=== PATIENT | female | born 1990 | race Caucasian/White ===

== ENCOUNTER 2022-09-23 19:38 | Inpatient (IN) | payer MEDICAID, SELFPAY ==
[2022-09-23 19:38] VITALS: BP 154/105; PULSE 120; RESP 20; TEMP 36.6; O2SAT 95
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
--- NOTE | 2022-09-23 20:55 | PC.NURSE ---
Patient stated she was feeling very anxious with a rating of 10/10. Also reported she would like medication to promote sleep. Vistaril and trazodone given as ordered at that time.
[2022-09-23] MEDS: hyDROXYzine 25 mg Capsule 50 MG PO (20:58)
[2022-09-23] MEDS: trazodone 50 mg Tablet PO (20:58)
[2022-09-23 21:42] VITALS: BP 154/105; PULSE 111; RESP 20; TEMP 36.6; O2SAT 96
--- NOTE | 2022-09-24 04:43 | PC.NURSE ---
Patient has rested comfortably since receiving earlier PRN's. No signs of distress noted.
[2022-09-24 06:00] VITALS: BP 126/80; PULSE 107; RESP 16; TEMP 36.7; O2SAT 95
[2022-09-24] MEDS: folic acid 1 mg Tablet PO (09:50)
[2022-09-24] MEDS: multivitamin therapeutic Tablet 1 TAB PO (09:50)
[2022-09-24] MEDS: thiamine 100 mg Tablet PO (09:50)
[2022-09-24] MEDS: fluoxetine 20 mg Capsule PO (09:51)
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
[2022-09-24 14:00] VITALS: BP 144/86; PULSE 100; RESP 17; TEMP 36.6; O2SAT 94
[2022-09-24] MEDS: hyDROXYzine 25 mg Capsule 50 MG PO (20:27)
[2022-09-24 21:11] VITALS: BP 133/82; PULSE 106; RESP 18; TEMP 36.7; O2SAT 94
[2022-09-25] MEDS: thiamine 100 mg Tablet PO (08:41)
[2022-09-25] MEDS: escitalopram 10 mg Tablet PO (08:41)
[2022-09-25] MEDS: multivitamin therapeutic Tablet 1 TAB PO (08:41)
[2022-09-25] MEDS: folic acid 1 mg Tablet PO (08:41)
[2022-09-25] MEDS: blistex lip oint 7 gm Tube 1 APPLIC TOPICAL (08:43)
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
[2022-09-25] MEDS: diphenhydrAMINE 50 mg Capsule PO (11:09)
[2022-09-25] MEDS: OLANZapine 5 mg ODT PO (13:37)
[2022-09-25 14:00] VITALS: BP 124/78; PULSE 115; RESP 17; TEMP 36.6; O2SAT 96
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
[2022-09-25] MEDS: hyDROXYzine 25 mg Capsule 50 MG PO (20:13)
[2022-09-25] MEDS: nicotine 2 mg Gum BUCCAL (20:13)
[2022-09-25] MEDS: trazodone 50 mg Tablet PO (20:13)
[2022-09-25 20:51] VITALS: BP 144/80; PULSE 108; RESP 17; O2SAT 95
[2022-09-26] MEDS: thiamine 100 mg Tablet PO (08:46)
[2022-09-26] MEDS: multivitamin therapeutic Tablet 1 TAB PO (08:46)
[2022-09-26] MEDS: folic acid 1 mg Tablet PO (08:46)
[2022-09-26] MEDS: nicotine 21 mg Patch 1 PATCH TRANSDERMA (08:46)
[2022-09-26] MEDS: escitalopram 10 mg Tablet 20 MG PO (08:46)
[2022-09-26] MEDS: hyDROXYzine 25 mg Capsule 50 MG PO ×3 (13:57→20:49)
[2022-09-26 14:00] VITALS: BP 147/85; PULSE 103; RESP 18; TEMP 36.7; O2SAT 94
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
[2022-09-26] MEDS: nicotine 2 mg Gum BUCCAL (20:49)
[2022-09-26 21:04] VITALS: BP 141/79; PULSE 109; RESP 18; O2SAT 96
[2022-09-26] MEDS: trazodone 50 mg Tablet PO (21:51)
[2022-09-27] MEDS: folic acid 1 mg Tablet PO (08:41)
[2022-09-27] MEDS: escitalopram 10 mg Tablet 20 MG PO (08:41)
[2022-09-27] MEDS: multivitamin therapeutic Tablet 1 TAB PO (08:41)
[2022-09-27] MEDS: thiamine 100 mg Tablet PO (08:41)
[2022-09-27] MEDS: nicotine 2 mg Gum BUCCAL ×3 (08:42→21:22)
[2022-09-27] MEDS: OLANZapine 5 mg ODT PO (09:29)
[2022-09-27 14:00] VITALS: BP 118/77; PULSE 100; RESP 17; TEMP 37; O2SAT 96
[2022-09-27] MEDS: hyDROXYzine 25 mg Capsule 50 MG PO (17:15)
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
[2022-09-27 20:26] VITALS: BP 134/91; PULSE 97; RESP 16; TEMP 36.6; O2SAT 94
[2022-09-27] MEDS: trazodone 50 mg Tablet PO (21:22)
[2022-09-27] MEDS: doxepin 10 mg Capsule PO (21:22)
[2022-09-28] MEDS: thiamine 100 mg Tablet PO (07:52)
[2022-09-28] MEDS: multivitamin therapeutic Tablet 1 TAB PO (07:53)
[2022-09-28] MEDS: escitalopram 10 mg Tablet 20 MG PO (07:53)
[2022-09-28] MEDS: folic acid 1 mg Tablet PO (07:54)
[2022-09-28] MEDS: nicotine 2 mg Gum BUCCAL ×2 (08:54→16:13)
[2022-09-28] MEDS: OLANZapine 5 mg ODT PO ×2 (10:34→17:28)
[2022-09-28 14:00] VITALS: BP 138/89; PULSE 112; RESP 18; TEMP 36.8; O2SAT 96
[2022-09-28] MEDS: ARIPiprazole 10 mg Tablet 5 MG PO (14:12)
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
[2022-09-28] MEDS: trazodone 50 mg Tablet PO (21:33)
[2022-09-28] MEDS: doxepin 10 mg Capsule PO (21:33)
[2022-09-28] MEDS: hyDROXYzine 25 mg Capsule 50 MG PO (21:34)
[2022-09-29] MEDS: nicotine 2 mg Gum BUCCAL ×2 (08:25→12:59)
[2022-09-29] MEDS: multivitamin therapeutic Tablet 1 TAB PO (08:26)
[2022-09-29] MEDS: folic acid 1 mg Tablet PO (08:26)
[2022-09-29] MEDS: ARIPiprazole 10 mg Tablet 5 MG PO (08:26)
[2022-09-29] MEDS: escitalopram 10 mg Tablet 20 MG PO (08:26)
[2022-09-29] MEDS: thiamine 100 mg Tablet PO (08:26)
--- NOTE | 2022-09-29 10:05 | PC.NURSE ---
Pt up and about on unit. Alert, oriented. Pt appears in good spirits. Said her goal was to stay positive and be happy. Denied anxiety, depression, anger, suicidal/homicidal thoughts and hallucinations. Rated pain 1 in her left arm. Said it was tingling from how she slept last night. Said her appetite and sleep were good. Reports her bowels moved this morning. Pt resting in bed.
[2022-09-29] MEDS: OLANZapine 5 mg ODT PO ×2 (13:14→23:43)
--- NOTE | 2022-09-29 13:33 | P.NPUPN_ITS ---
Subjective NPU Subjective: Patient presents today reporting that she is dealing with the Abilify. She seems to be that staying was probably the right thing. She is however to miss being home or family but had limited insight into the fact that with everything going on the situation she will be returning to is not the same. We discussed the importance of her having a clear and executable plan for follow-up, treatment and recovery at the time of discharge. Mental Status Exam MSE Comments: This is an obese white female in hospital scrubs with limited grooming and eye contact. No abnormal movements except for psychomotor retardation. She was calm and cooperative on interview and showed evidence of mild distress. Her speech was normal in regards to rate rhythm with some monotony. Mood described as a little better, affect somewhat flat and odd. Her thought process was linear logical and goal-directed. Thought content: She denied any current suicidal ideation and denied any homicidal ideation. There was no evidence of any delusional thinking. She did not appear to be responding to internal stimuli. But she did discuss seeing people outside of her window and her roommate reported that there was no one there the time she reported it. She was alert and oriented to person place time and situation. Attention and concentration were limited and memory was somewhat unreliable but none were formally tested. Her insight was poor. Her judgment is poor at this time. Her impulse control remained guarded. Vitals/I&O/Wt Last Vital Signs Temp 98.3 F 09/28/22 14:00 Pulse 112 H 09/28/22 14:00 Resp 18 09/28/22 14:00 BP 138/89 09/28/22 14:00 Pulse Ox 96 09/28/22 14:00 O2 Del Method 09/28/22 14:00 A&P Assessment and plan (1) Major depressive disorder: (2) Suicidal ideation: (3) Homicidal ideation: (4) Alcohol abuse: Plan Sylwia is a 32-year-old white female with reportedly no history of inpatient hospitalization positive for methamphetamine and endorsing history of alcohol use admitted with suicidal ideation who does acknowledge depressed mood currently while in an increasingly stressful situation at home with significant conflict with her . 1. Continued Lexapro at 20 mg daily. Continue Abilify 5 mg p.o. every morning. We will consider increasing to 10 mg. 2. Engage patient in individual milieu and group therapy. 3. 15-minute checks for safety on the unit. 4. encourage sober living treatment at the highest level of care to which the patient is willing to commit. 5. We will attempt to gather collateral information about possible restraining order and ability to return home. Involuntary Hold Information 96 Hour Hold: 96 Hour Involuntary Admission: Yes 96 Hour Hold Ending Date: 09/28/22 96 Hour Hold Ending Time: 00:01 Attestations NPU Medical Necessity Statement*: Inpatient hospitalization is medically necessary and the clinically appropriate intervention at this time. We will monitor medications and make changes as indicated. Her likely length of stay is 2-4 days. Coding Level of Care Code Acute Code for [facility] [employer] [facility] Fwd Diagnoses Major depressive disorder F32.9 Suicidal ideation R45.851 Homicidal ideation R45.850 Alcohol abuse F10.10
[2022-09-29 14:00] VITALS: BP 150/64; PULSE 112; RESP 16; TEMP 36.6; O2SAT 98
[2022-09-29] MEDS: nicotine 4 mg lozenge MUCOUS MEM ×3 (16:40→22:58)
[2022-09-29 22:00] VITALS: BP 134/96; PULSE 120; RESP 17; TEMP 36.8; O2SAT 96
[2022-09-29] MEDS: doxepin 10 mg Capsule PO (22:00)
[2022-09-29] MEDS: hyDROXYzine 25 mg Capsule 50 MG PO (22:00)
[2022-09-30] MEDS: hyDROXYzine 25 mg Capsule 50 MG PO ×2 (08:04→20:59)
[2022-09-30] MEDS: folic acid 1 mg Tablet PO (09:24)
[2022-09-30] MEDS: multivitamin therapeutic Tablet 1 TAB PO (09:24)
[2022-09-30] MEDS: ARIPiprazole 10 mg Tablet 5 MG PO ×2 (09:24→12:08)
[2022-09-30] MEDS: thiamine 100 mg Tablet PO (09:24)
[2022-09-30] MEDS: escitalopram 10 mg Tablet 20 MG PO (09:24)
[2022-09-30] MEDS: nicotine 4 mg lozenge MUCOUS MEM ×3 (09:24→20:03)
--- NOTE | 2022-09-30 10:57 | W.PM.NPUPNS ---
Subjective NPU Subjective: Patient presented today endorsing improvement in the way she feels. For the first time she was able to articulate some position in the way she was thinking or feeling. She agreed that her readiness to face the court was limited but that she is feeling happier since the Abilify was started. We discussed the risks, benefits and alternatives of increasing it to 10 mg p.o. every morning and she understood and agreed to proceed as is documented in this note. We discussed her improvement being a likely sign that her symptoms represented thought disorder/psychosis. Mental Status Exam MSE Comments: This is an obese white female in hospital scrubs with limited grooming and eye contact. No abnormal movements except for psychomotor retardation. She was calm and cooperative on interview and showed evidence of mild distress. Her speech was normal in regards to rate rhythm with some monotony. Mood described as a little better, affect . Her thought process was linear logical and goal-directed. Thought content: She denied any current suicidal ideation and denied any homicidal ideation. There was no evidence of any delusional thinking. She did not appear to be responding to internal stimuli. She was alert and oriented to person place time and situation. Attention and concentration were limited and memory was more reliable but none were formally tested. Her insight was improving. Her judgment is also improving. Her impulse control remained guarded. Vitals/I&O/Wt Last Vital Signs Temp 98.2 F 09/29/22 22:00 Pulse 120 H 09/29/22 22:00 Resp 17 09/29/22 22:00 BP 134/96 09/29/22 22:00 Pulse Ox 96 09/29/22 22:00 O2 Del Method 09/29/22 22:00 Weight last 48 hrs Weight 94.404 kg A&P Assessment and plan (1) Major depressive disorder: (2) Suicidal ideation: (3) Homicidal ideation: (4) Alcohol abuse: Plan Sylwia is a 32-year-old white female with reportedly no history of inpatient hospitalization positive for methamphetamine and endorsing history of alcohol use admitted with suicidal ideation who does acknowledge depressed mood currently while in an increasingly stressful situation at home with significant conflict with her . 1. Continued Lexapro at 20 mg daily. Increase Abilify to 10 mg p.o. every morning. 2. Engage patient in individual milieu and group therapy. 3. 15-minute checks for safety on the unit. 4. encourage sober living treatment at the highest level of care to which the patient is willing to commit. 5. We will attempt to gather collateral information about possible restraining order and ability to return home. Involuntary Hold Information 96 Hour Hold: 96 Hour Involuntary Admission: Yes 96 Hour Hold Ending Date: 09/28/22 96 Hour Hold Ending Time: 00:01 Attestations NPU Medical Necessity Statement*: Inpatient hospitalization is medically necessary and the clinically appropriate intervention at this time. We will monitor medications and make changes as indicated. Her likely length of stay is 1-3 days. Coding Level of Care Code Acute Code for g Fwd Diagnoses Major depressive disorder F32.9 Suicidal ideation R45.851 Homicidal ideation R45.850 Alcohol abuse F10.10
[2022-09-30 14:00] VITALS: BP 122/84; PULSE 98; RESP 18; TEMP 36.6; O2SAT 99
[2022-09-30] MEDS: doxepin 10 mg Capsule PO (20:02)
[2022-09-30] MEDS: trazodone 50 mg Tablet PO (20:02)
[2022-09-30 20:13] VITALS: BP 127/76; PULSE 100; RESP 17; TEMP 36.8; O2SAT 94
[2022-10-01] MEDS: trazodone 50 mg Tablet PO (00:11)
[2022-10-01] MEDS: thiamine 100 mg Tablet PO (08:29)
[2022-10-01] MEDS: ARIPiprazole 10 mg Tablet PO (08:29)
[2022-10-01] MEDS: multivitamin therapeutic Tablet 1 TAB PO (08:29)
[2022-10-01] MEDS: folic acid 1 mg Tablet PO (08:29)
[2022-10-01] MEDS: escitalopram 10 mg Tablet 20 MG PO (08:29)
[2022-10-01] MEDS: nicotine 4 mg lozenge MUCOUS MEM ×2 (08:29→14:54)
[2022-10-01] MEDS: hyDROXYzine 25 mg Capsule 50 MG PO (12:51)
[2022-10-01 14:00] VITALS: BP 118/64; PULSE 108; RESP 17; TEMP 36.8; O2SAT 95
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
[2022-10-01 15:19] VITALS: BP 118/64; PULSE 108; RESP 17; TEMP 36.8; O2SAT 95
== END 2022-10-01 17:01 | disposition home or self-care (01) | DRG 881 ==
PROVIDERS: Admitting Provider Psychiatry & Neurology Psychiatry; Visit Provider Psychiatry & Neurology Psychiatry
DX: F32.9 Major depressive disorder, single episode, unspecified (principal); R45.851 Suicidal ideations; R45.850 Homicidal ideations; F10.10 Alcohol abuse, uncomplicated; F17.210 Nicotine dependence, cigarettes, uncomplicated; Z81.3 Family history of other psychoactive substance abuse and dependence
CPT/HCPCS: 97150; 97165; Q0163